=== PATIENT | female | born 1940 | race Caucasian/White ===

== ENCOUNTER 2017-05-04 14:26 | Outpatient (CLI) | payer MEDICARE, OTHER ==
--- NOTE | 2017-05-04 15:20 | Diagnostic Imaging Report ---
ISIDORO BRANDT [facility] [id number] Count Includes [facility] [address] [id number] Report Submission Date: May 04, 2017 3:17:42 PM CDT Patient Study Name: YOGI DAVID Date: May 04, 2017 2:40:30 PM CDT Modality Type: CR Gender: F Description: SPINE : 40 Institution: [facility] Physician: ISIDORO BRANDT Examination: Cervical spine History: Discomfort Comparison exams: None available Findings: 3 views of the cervical spine demonstrate normal height and alignment. No anterior compression. No abnormal listhesis. No odontoid abnormality. Few anterior osteophytes. No prevertebral abnormality Impression: No acute osseous abnormality Electronically signed on May 04, 2017 3:17:42 PM CDT by: Salvatore SHEARER
== END 2017-05-04 14:27 ==
LOC: RAD 14:26
PROVIDERS: ATTEND Physician Assistant
DX: M54.2 Cervicalgia (principal)
CPT/HCPCS: 72040

== ENCOUNTER 2017-05-05 09:53 | Outpatient (CLI) | payer MEDICARE, OTHER | END 2017-05-05 09:54 | LOC: LAB 09:53 | PROVIDERS: ATTEND Physician Assistant | DX: M54.2 Cervicalgia (principal) | CPT/HCPCS: 36415; 86618; 86666; 86757 ==

== ENCOUNTER 2018-09-27 10:10 | Day surgery (SDC) | payer MEDICARE, OTHER ==
[~2018-09-27 10:10] MED LIST: LACTATED RINGERS 1,000 ML IV.SOLN IV ONE; LIDOCAINE HCL 2% PF 100MG/5ML VIAL IJ ONE; PROPOFOL 200 MG/20 ML VIAL IV ONE
--- NOTE | 2018-09-28 14:48 | GI Report ---
REFERRING PHYSICIAN: Dr. Cyndee Seymour [employer] HELPER: Kadeem Dc MD PROCEDURE MEDICATION: Propofol as per anesthesia. INDICATIONS: This 77-year-old woman is referred for a screening, though she has had some change in her stools. She denies any bleeding. She denies abdominal pain. She has had normal colonoscopies in the past. She is referred at this time for an evaluation. PROCEDURE PERFORMED: Colonoscopy. PROCEDURE: An Olympus video colonoscope was advanced to the rectum. She has moderate diverticular disease of her sigmoid colon. It was a slow tedious process to get through that area and then was a very atonic redundant colon. It took nurse compression to finally reach the base of the cecum. The cecum and ileocecal valve were normal. On slow withdrawal, ascending colon and transverse colon with no obvious intraluminal lesions noted. The descending colon and sigmoid with some redundancy and moderate diverticular disease of her sigmoid colon. No obvious diverticulitis. Retroflexion of the rectum was normal. Patient tolerated the procedure well. FINDINGS: 1. Extensive diverticular disease of the sigmoid colon. 2. An atonic redundant colon. RECOMMENDATIONS: 1. Increase fiber in her diet. 2. May not need a follow up screening colonoscopy, but if clinically indicated, bleeding, change in stool, or pain, one would consider a colonoscopy in the future for the specific indications. cc: Dr. Cyndee SHEARER
== END 2018-09-27 13:22 ==
LOC: OPSURG 10:10
PROVIDERS: ATTEND Internal Medicine Gastroenterology
DX: Z12.11 Encounter for screening for malignant neoplasm of colon (principal); K57.30 Diverticulosis of large intestine without perforation or abscess without bleeding
CPT/HCPCS: G0121; J2001; J2704; J7120; S1016